=== PATIENT | female | born 1975 | race Caucasian/White ===

== ENCOUNTER 2022-05-17 16:46 | Emergency (ER) | payer SELFPAY ==
[~2022-05-17] VITALS: Ht 167.6 cm; Wt 79.0 kg
[2022-05-17 16:55] VITALS: BP 142/86
[2022-05-17] MEDS ORDERED: ACET-2708 MT (23:43)
[2022-05-17] MEDS ORDERED: HYDR50TA54 MT (23:43)
== END 2022-05-17 23:53 | disposition home or self-care (01) ==
LOC: ER 16:46
DX: F41.9 Anxiety disorder, unspecified (principal); I10 Essential (primary) hypertension
CPT/HCPCS: 99283